=== PATIENT | male | born 1985 | race African-American/Black ===

== ENCOUNTER 2019-04-21 08:09 | Emergency (ER) | payer OTHER ==
[2019-04-21 08:25] VITALS: BP 162/81
--- NOTE | 2019-04-21 08:55 | XRAY Report ---
Reason: Cough and SOB Procedure Date: 04/21/2019 Accession Number: [id number] / [id number] Procedure: XR - Chest 2 View X-Ray CPT Code: 36210 Final Report FULL RESULT: EXAM: CHEST RADIOGRAPHY 2 VIEWS EXAM DATE: 04/21/2019. CLINICAL HISTORY: Cough and shortness of breath. COMPARISON: None. TECHNIQUE: PA and lateral views. FINDINGS: Lungs/Pleura: Normal vasculature. The lungs are clear. No pleural fluid or pneumothorax. Mediastinum: Normal cardiac and mediastinal contours. Bones: Normal. IMPRESSION: Normal PA and lateral chest radiography. RADIA
--- NOTE | 2019-04-21 09:06 | ED Physician Documentation ---
PD HPI URI - Stated complaint Stated Complaint: SOA/COUGH - Chief complaint Chief Complaint: Resp - History obtained from History obtained from: Patient - History of Present Illness Timing - onset: How many days ago (several) Timing duration: Days Timing details: Abrupt onset, Still present Associated symptoms: Chills, Nasal congestion, Dry cough, Chest pain, Dyspnea Contributing factors: No: Sick contact, Travel, COPD / asthma Recently seen: Clinic (Rx Tessalon for cough but still cough and unable to sleep and with some chest hurting to cough.) Review of Systems Constitutional: reports: Chills, Myalgias. denies: Fever Nose: reports: Rhinorrhea / runny nose Throat: denies: Sore throat Cardiac: reports: Chest pain / pressure Respiratory: reports: Dyspnea, Cough, Wheezing GI: denies: Vomiting, Diarrhea Neurologic: reports: Generalized weakness. denies: Focal weakness, Numbness, Near syncope, Altered mental status, Headache PD PAST MEDICAL HISTORY - Past Medical History Cardiovascular: None Respiratory: None Neuro: None Endocrine/Autoimmune: None - Present Medications Home Medications: Ambulatory Orders Medication Instructions Recorded Confirmed Albuterol Sulfate [Albuterol 2 puffs IH QID #1 hfa.aer.ad 04/21/19 Sulfate Hfa] dexAMETHasone [Decadron] 4 mg PO DAILY #5 tablet 04/21/19 guaiFENesin/CODEINE [Robitussin AC] 10 ml PO Q6H PRN #240 ml 04/21/19 - Allergies Allergies/Adverse Reactions: Allergies Allergy/AdvReac Type Severity Reaction Status Date / Time alvacodo Allergy Anaphylaxis Uncoded 04/21/19 08:25 - Social History Does the pt smoke?: No Does the pt have substance abuse?: No PD ED PE NORMAL - Vitals Vital signs reviewed: Yes - General General: Alert and oriented X 3, No acute distress, Well developed/nourished - HEENT HEENT: Ears normal, Moist mucous membranes, Pharynx benign - Neck Neck: Supple, no meningeal sign, No adenopathy - Cardiac Cardiac: RRR, No murmur - Respiratory Respiratory: No: Clear bilaterally (no coarse sounds; exp is tight with faint scattered wheezing.) - Abdomen Abdomen: Soft, Non tender - Derm Derm: Normal color, Warm and dry Results - Vitals Vitals: Vital Signs - 24 hr 04/21/19 09:50 Heart Rate 64 Respiratory 17 Rate Blood Pressure 162/81 H O2 Saturation 98 Oxygen O2 Source Room air - Rads (name of study) chest xray Radiology: Prelim report reviewed (no infiltrates; normal chest xray), See rad report PD MEDICAL DECISION MAKING - ED course Complexity details: considered differential, d/w patient Departure - Departure Disposition: 01 Home, Self Care Clinical Impression: Upper respiratory infection Qualifiers: URI type: unspecified URI Qualified Code(s): J06.9 - Acute upper respiratory infection, unspecified Condition: Stable Record reviewed to determine appropriate education?: Yes Instructions: ED URI Viral W Wheezing Follow-Up: PATRICIO NELSON MD [Primary Care Provider] - Prescriptions: Albuterol Sulfate [Albuterol Sulfate Hfa] 2 puffs IH QID #1 hfa.aer.ad dexAMETHasone [Decadron] 4 mg PO DAILY #5 tablet guaiFENesin/CODEINE [Robitussin AC] 10 ml PO Q6H PRN #240 ml PRN Reason: Cough Comments: Continue the benzonatate (Tessalon) to help with cough suppression. Add an albuterol inhaler 2 puffs 4 times a day for the next 7 to 10 days and extra times as needed for wheezing and tightness. You can continue the albuterol 2 puffs prior to exercise and activity for a month or so on if you feel persistent wheezing or tightness. Decadron steroid for inflammation of the bronchials daily for 5 more days. Add codeine cough medicine if needed for cough suppression. Recheck if not improving well over the next several days to week. Some cough itself may consider the new for 2 or 3 weeks. At this point it sounds like a viral illness and do not see an indication for antibiotics. Discharge Date/Time: 04/21/19 09:51
[2019-04-21] MEDS ORDERED: DEXAMETHASONE 10 MG/ML VIAL PO STA (09:27)
[2019-04-21] MEDS ORDERED: CHERRY SYRUP 10 ML UDC PO ONE (09:27)
== END 2019-04-21 09:51 | disposition home or self-care (01) ==
LOC: ED 08:09
DX: J06.9 Acute upper respiratory infection, unspecified (principal)
CPT/HCPCS: 71046; 99283; A9270